=== PATIENT | female | born 1935 | race Hispanic/Latino ===

== ENCOUNTER 2019-01-08 18:51 | Emergency (ER) | payer MEDICARE ==
[~2019-01-08] VITALS: Ht 160 cm; Wt 89.4 kg
--- OUTSIDE RECORDS SUMMARY | 2019-01-08 18:56 | XMS REPORT | Summary of Care ---
Author Author KELECHI SHEEHAN M.D. Organization Unknown Address Unknown Phone Unavailable Care Team Providers Care Flexo Operator Name Role Phone Germain BooneMay Unavailable Unavailable KELECHI SHEEHAN M.D. 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 * Refills: 0 Active Loratadine 10 MG Oral Tablet * Refills: 0 Active Losartan Potassium 100 MG Oral Tablet TAKE 1 TABLET BY MOUTH DAILY * Quantity: 90 Refills: 1 Active Promethazine HCl - 25 MG Oral Tablet * Refills: 0 Active Pantoprazole Sodium 40 MG Oral Tablet Delayed Release TAKE 1 TABLET BY MOUTH TWICE DAILY * Quantity: 180 Refills: 1 SISSY M.D., KELECHI Active cloNIDine HCl - 0.1 MG Oral Tablet * Refills: 0 Active Bumetanide 0.5 MG Oral Tablet TAKE 0.5 TABLET DAILY * Quantity: 15 Refills: 0 SISSY M.D., KELECHI Active Labetalol HCl - 100 MG Oral Tablet TAKE 1 TABLET EVERY 12 HOURS DAILY. * Refills: 0 Active Diphenoxylate-Atropine 2.5-0.025 MG Oral Tablet * Refills: 0 Active hydrALAZINE HCl - 100 MG Oral Tablet TAKE 1 TABLET TWICE DAILY * Quantity: 180 Refills: 1 SISSY M.D., KELECHI Active Allergies and Adverse Reactions Name Dates Details Codeine Derivatives (Allergy) Status: Active Penicillins (Allergy) Status: Active Past Medical History Name Dates Details History of diabetes mellitus (V12.29, Z86.39) Status: Resolved History of glaucoma (V12.49, Z86.69) Status: Resolved History of hypertension (V12.59, Z86.79) Status: Resolved History of thyroid disease (V12.29, Z86.39) Status: Resolved Procedures Procedure Dates Details History of Hysterectomy Completed History of Hernia Repair Completed History of Knee Replacement Completed History of Bladder Surgery Completed Immunization Name Dates Details Immunizations not documented Family History Name Dates Details No significant family history (V49.89, Z78.9) Status: Active Social History Name Dates Details - Status: Name Dates Details Never smoker Vital Signs Date Test Result Details [id number] BP Systolic 149 mm[Hg] Status: Comments: Location: LUE; Position: Sitting BP Diastolic 86 mm[Hg] Status: Comments: Location: LUE; Position: Sitting Height 63 in Status: Weight 195 lb Status: Body Mass Index Calculated 34.54 kg/m2 Status: Body Surface Area Calculated 1.91 m2 Status: Heart Rate 87 /min Status: Results Date Description Value Details Results not documented Plan of Care Name Dates Details Planned Observations Planned Goals not documented Planned Encounters Appointment; KELECHI SHEEHAN M.D. On: 01-Jan-2019 11:00 Interventions Provided Medication Changes* hydrALAZINE HCl - 100 MG Oral Tablet - Renew Instructions Name Dates Details Instructions not documented Encounters Appointment; KELECHI SHEEHAN M.D. Encounter Diagnosis: Problem not documented On: 06-Nov-2018 10:00
--- OUTSIDE RECORDS SUMMARY | 2019-01-08 18:56 | XMS REPORT ---
Author Author [facility] Address Unknown Phone Unavailable Care Team Providers Care Natural Gas Basis Trader Name Role Phone THOMAS BAKER Unavailable Unavailable COMPA YUAN Unavailable Unavailable FOREST REYES Unavailable Unavailable Problems This patient has no known problems. Allergies, Adverse Reactions, Alerts This patient has no known allergies or adverse reactions. Medications This patient has no known medications. Encounters Start Date/Time End Date/Time Encounter Type Admission Type Attending [facility] Care Department Encounter ID 2017-07-19 13:00:00 Inpatient [facility]OM[facility] [place] [id number] 2019-01-04 05:37:00 2019-01-04 05:37:00 Outpatient E [facility] [id number] 2018-09-17 07:03:00 2018-09-17 07:03:00 Outpatient [facility] [id number] 2017-08-20 14:00:00 2017-11-29 23:59:00 Outpatient [facility]PA [facility] [place] [id number] 2016-07-30 13:05:00 2016-10-14 23:59:00 Outpatient FOREST VERAS [facility] [id number] 2016-03-22 13:02:00 2016-07-01 23:59:00 Outpatient COMPA DANIELLE [facility] PT [id number]
[2019-01-08] MEDS ORDERED: DIPHENHYDRAMINE HCL 25 MG CAP PO PRN (19:15)
[2019-01-08] MEDS ORDERED: FAMOTIDINE 20 MG TAB PO ONE (19:15)
[2019-01-08] MEDS ORDERED: PREDNISONE 20 MG TAB PO ONE (19:15)
[2019-01-08 20:02] VITALS: BP 165/88
== END 2019-01-08 20:11 | disposition home or self-care (01) ==
LOC: ER 18:51
DX: L27.0 Generalized skin eruption due to drugs and medicaments taken internally (principal); T36.95XA Adverse effect of unspecified systemic antibiotic, initial encounter; I10 Essential (primary) hypertension; E11.9 Type 2 diabetes mellitus without complications; E03.9 Hypothyroidism, unspecified; K21.9 Gastro-esophageal reflux disease without esophagitis
CPT/HCPCS: 99283; J7512